=== PATIENT | female | born 1965 | race Two or more races ===

== ENCOUNTER → 2018-05-12 | Outpatient (CLI) | payer BC ==
[~2018-05-12] MED LIST: AMLO10TA6 PO; CARV3.1212 PO; HYDR-3342 PO; LOSA100T7 PO; LOVA-39 PO; PREN1TAB28 PO
== END | disposition home or self-care (01) ==
LOC: CFH 12:44
PROVIDERS: ATTEND Internal Medicine Cardiovascular Disease
DX: I10 Essential (primary) hypertension (principal); R01.1 Cardiac murmur, unspecified; R06.02 Shortness of breath
CPT/HCPCS: 78452; 93017; A9502

== ENCOUNTER → 2018-05-23 | Outpatient (CLI) | payer BC | END | disposition home or self-care (01) | LOC: CFH 08:55 | PROVIDERS: ATTEND Internal Medicine Cardiovascular Disease | DX: I10 Essential (primary) hypertension (principal); R01.1 Cardiac murmur, unspecified; E78.5 Hyperlipidemia, unspecified | CPT/HCPCS: 93306 ==

== ENCOUNTER 2018-11-24 07:30 | Day surgery (SDC) | payer BC ==
[~2018-11-24] VITALS: Ht 160 cm; Wt 90.0 kg
[~2018-11-24 07:30] MED LIST changes: -AMLO10TA6 PO; +AMLO10TA8 PO; +LOSA100T14 PO; -LOSA100T7 PO
[2018-11-24] MEDS ORDERED: LABETALOL 5MG/ML, 20ML IV PRN (09:00)
[2018-11-24] MEDS ORDERED: ALBUTEROL/IPRATROPIUM 2.5MG/0.5MG, 3 ML NPPB PRN (09:00)
[2018-11-24] MEDS ORDERED: MORPHINE SULFATE 4 MG/ML, 1ML IVPush PRN (09:00)
[2018-11-24] MEDS ORDERED: HYDROmorphone 2 MG/ML, 1ML IVPush PRN (09:00)
[2018-11-24] MEDS ORDERED: MIDAZOLAM 1 MG/ML, 2ML IV PRN (09:00)
[2018-11-24] MEDS ORDERED: EPHEDRINE 50 MG/ML, 1ML IM PRN (09:00)
[2018-11-24] MEDS ORDERED: METOCLOPRAMIDE 5 MG/ML, 2ML IV PRN (09:00)
[2018-11-24] MEDS ORDERED: DEXAMETHASONE 4 MG/ML, 1ML IV PRN (09:00)
[2018-11-24] MEDS ORDERED: ACETAMINOPHEN 325 MG TABLET PO PRN (09:00)
[2018-11-24] MEDS ORDERED: hydrALAzine 20 MG/ML, 1ML IV PRN (09:00)
[2018-11-24] MEDS ORDERED: PLEASE ENTER HEIGHT AND WEIGHT MC SCH (09:00)
[2018-11-24] MEDS ORDERED: ONDANSETRON ODT 8 MG PO PRN (09:00)
[2018-11-24] MEDS ORDERED: SODIUM CHLORIDE 0.9% 1,000 ML IV SCH (09:00)
[2018-11-24] MEDS ORDERED: FURO-92 PO (09:04)
[2018-11-24] MEDS ORDERED: CARV12.52 PO (09:04)
[2018-11-24] MEDS ORDERED: ERGO500017 PO (09:04)
[2018-11-24] MEDS ORDERED: CHOL2000 PO (09:04)
[2018-11-24 09:05] VITALS: BP 156/103
[2018-11-24] MEDS ORDERED: FENTANYL PF 250 MCG/5ML ONE (11:14)
[2018-11-24] MEDS ORDERED: LIDOCAINE-MPF 2% ,5ML ONE (11:14)
[2018-11-24] MEDS ORDERED: ROCURONIUM 10MG/ML,5ML ONE (11:14)
[2018-11-24] MEDS ORDERED: GLYCOPYRROLATE 0.2MG/1ML, 5ML ONE (11:14)
[2018-11-24] MEDS ORDERED: DEXAMETHASONE 4 MG/ML, 1ML ONE (11:14)
[2018-11-24] MEDS ORDERED: MIDAZOLAM 1 MG/ML, 2ML ONE (11:14)
[2018-11-24] MEDS ORDERED: PROPOFOL 10 MG/ML, 20ML ONE (11:14)
[2018-11-24] MEDS ORDERED: PROTAMINE SULFATE 10 MG/ML, 5ML ONE (12:03)
[2018-11-24] MEDS ORDERED: HEPARIN 1,000 UNITS/ML, 10ML ONE (12:04)
[2018-11-24] MEDS ORDERED: CEFAZOLIN 1,000 MG ONE (12:23)
[2018-11-24] MEDS ORDERED: ACETAMINOPHEN 650 MG/20.3 ML UDC ONE (13:42)
[2018-11-24] MEDS ORDERED: FENTANYL PF 100 MCG/2ML ONE (13:42)
[2018-11-24] MEDS ORDERED: OXYcodone 5 MG/5 ML ORAL.SOL UDC ONE (13:43)
[2018-11-24] MEDS: FENTANYL PF 100 MCG/2ML IV PRN ×2 (13:44→13:57)
[2018-11-24] MEDS: OXYcodone 5 MG/5 ML ORAL.SOL UDC PO PRN ×2 (13:46→15:23)
[2018-11-24] MEDS ORDERED: DIPHENHYDRAMINE 50 MG/ML, 1ML ONE (14:14)
[2018-11-24] MEDS ORDERED: DIPHENHYDRAMINE 50 MG/ML, 1ML IVPush PRN (14:30)
== END 2018-11-24 18:35 | disposition home or self-care (01) ==
LOC: OUT 07:30
PROVIDERS: ATTEND Surgery Vascular Surgery
DX: I12.0 Hypertensive chronic kidney disease with stage 5 chronic kidney disease or end stage renal disease (principal); N18.6 End stage renal disease; Z88.1 Allergy status to other antibiotic agents
CPT/HCPCS: 36415; 36821; 80047; J0690; J1100; J1200; J1644; J2250; J2704; J3010; J7030; J2720